=== PATIENT | female | born 1960 | race Caucasian/White ===

== ENCOUNTER → 2019-10-06 14:16 | Outpatient (BNVA) | payer MEDICARE, MEDICAID, SELFPAY | PROVIDERS: PCP Nurse Practitioner Family; Visit Provider Internal Medicine Rheumatology | DX: M05.79 Rheumatoid arthritis with rheumatoid factor of multiple sites without organ or systems involvement (principal); Z79.899 Other long term (current) drug therapy; L23.9 Allergic contact dermatitis, unspecified cause | CPT/HCPCS: 99214 ==

== ENCOUNTER 2019-11-08 08:42 | Outpatient (CLI) | payer MEDICARE, MEDICAID, SELFPAY ==
--- NOTE | 2019-11-08 08:49 | MM_ITS ---
WS: [id number] BILATERAL DIGITAL SCREENING MAMMOGRAPHY WITH CAD CLINICAL INFORMATION: SCREENING HISTORY: Screening mammogram. No current complaints. COMPARISON: June 05, 2018 TECHNIQUE: Bilateral CC and MLO views. FINDINGS: Scattered fibroglandular densities bilaterally. No suspicious focal mass, asymmetry, calcifications, or architectural distortion. No evidence of malignancy. Punctate calcification right breast. MM/[id number] IMPRESSION: BI-RADS: 2-Benign FOLLOW UP: 1 Year Follow-up Recommend return to annual screening mammography.
== END 2019-11-08 08:43 | disposition home or self-care (01) ==
LOC: RADSHAW 08:46
PROVIDERS: PCP Nurse Practitioner Family; Visit Provider Nurse Practitioner Family
DX: Z12.31 Encounter for screening mammogram for malignant neoplasm of breast (principal)
CPT/HCPCS: 77067

== ENCOUNTER → 2024-03-03 13:11 | Outpatient (BNVA) | payer MEDICARE, MEDICAID, SELFPAY | PROVIDERS: PCP Nurse Practitioner Family | DX: N30.01 Acute cystitis with hematuria (principal) | CPT/HCPCS: 81000; 87086 ==

== ENCOUNTER → 2024-07-15 09:01 | Outpatient (BNVA) | payer MEDICAID, MEDICARE, SELFPAY | PROVIDERS: PCP Nurse Practitioner Family; Referring Provider Nurse Practitioner Family; Visit Provider Internal Medicine Rheumatology | DX: M05.79 Rheumatoid arthritis with rheumatoid factor of multiple sites without organ or systems involvement (principal); L23.9 Allergic contact dermatitis, unspecified cause; M15.9 Polyosteoarthritis, unspecified | CPT/HCPCS: 99204 ==

== ENCOUNTER 2025-02-02 08:21 | Outpatient (RCR) | payer MEDICARE, MEDICAID, SELFPAY | END 2025-02-04 23:59 | disposition home or self-care (01) | LOC: TPT 08:21 | PROVIDERS: Visit Provider Orthopaedic Surgery | DX: S82.042D Displaced comminuted fracture of left patella, subsequent encounter for closed fracture with routine healing (principal); X58.XXXD Exposure to other specified factors, subsequent encounter | CPT/HCPCS: 97110; 97161 ==

== ENCOUNTER 2025-02-23 08:27 | Outpatient (RCR) | payer MEDICARE, MEDICAID, SELFPAY | END 2025-02-28 08:52 | disposition home or self-care (01) | LOC: TPT 08:27 | PROVIDERS: Visit Provider Orthopaedic Surgery | DX: S82.042D Displaced comminuted fracture of left patella, subsequent encounter for closed fracture with routine healing (principal); X58.XXXD Exposure to other specified factors, subsequent encounter | CPT/HCPCS: 97110; 97140 ==

== ENCOUNTER → 2025-03-10 10:41 | Outpatient (BNVA) | payer MEDICARE, MEDICAID, SELFPAY | PROVIDERS: Visit Provider Student in an Organized Health Care Education/Training Program | DX: R19.5 Other fecal abnormalities (principal) | CPT/HCPCS: 99204 ==

== ENCOUNTER 2025-03-22 07:26 | Day surgery (SDC) | payer MEDICARE, MEDICAID, SELFPAY ==
[2025-03-22 07:41] VITALS: BP 152/67; PULSE 63; RESP 18; TEMP 36.2; O2SAT 100; BMI 22.6
--- NOTE | 2025-03-22 08:45 | ANES.PREANE2 ---
Pre-Anesthetic Assessment Height/Weight: Height 5 ft 6 in Weight 140 lb Temp Pulse Resp BP Pulse Ox O2 Del Method 97.1 F L 63 18 152/67 100 Room Air 03/22/25 07:41 03/22/25 07:41 03/22/25 07:41 03/22/25 07:41 03/22/25 07:41 03/22/25 07:41 Preop Diagnosis: Screening colonoscopy Operation Date: 03/22/25 09:00 Proposed Procedures p Colonoscopy [id number] G0105 R19.5(Not Applicable) - Edison Ruff MD Was Beta Neo taken within 24 hours: Yes Was Clonidine taken within 24 hours: N/A Last intake: Intake Last Liquid Date 03/21/25 Last Liquid Time 20:00 Last Solid Date 03/20/25 Last Solid Time 19:00 Social No alcohol and No tobacco Exam alert, oriented x 3, clear to auscultation bilaterally and regular rate & rhythm Airway Submandibular: within normal limits Cervical ROM: within normal limits Mallampati: Class III Dentition: false Anesthetic Plan ASA status: 3 Anesthesia: MAC Other: Patient has a history of PONV but states she does just fine if she gets Zofran Completed bowel prep History of hypertension on metoprolol and amlodipine preop BP 152/67 GERD on Protonix Patient is very worried about false teeth, only wants to take them out in the room Apixaban last taken 03/19/2025 Plan for MAC anesthesia Medications/Allergies Home Medications ?Medication ?Instructions ?Recorded ?Confirmed ?Last Taken ?Type amlodipine 5 mg tablet 5 mg PO DAILY 07/20/19 03/17/25 03/22/25 06:00 History apixaban 5 mg tablet (Eliquis) 5 mg PO BID 07/20/19 03/17/25 03/19/25 History cyclobenzaprine 10 mg tablet 10 mg PO TID PRN Spasms 07/20/19 03/17/25 03/17/25 History loratadine 10 mg tablet 10 mg PO DAILY 07/20/19 03/17/25 03/17/25 History metoprolol tartrate 50 mg tablet 50 mg PO BID 07/20/19 03/17/25 03/22/25 06:00 History pantoprazole 40 mg tablet,delayed 40 mg PO DAILY 07/20/19 03/17/25 03/17/25 History release prednisone 20 mg tablet See Rx Instructions PO .COMPLEX 07/15/24 03/17/25 Unknown Rx PRN joint pain flare #30 tabs hydroxyzine HCl 25 mg tablet 12.5 - 25 mg PO Q6H PRN Anxiety 03/17/25 03/17/25 03/16/25 History ondansetron 4 mg disintegrating 4 mg PO Q8H PRN Nausea And Vomiting 03/17/25 03/17/25 03/17/25 History tablet oxycodone-acetaminophen 5 mg-325 0.5 tab PO Q6H PRN Pain 03/17/25 03/17/25 03/17/25 History mg tablet trazodone 100 mg tablet 100 mg PO BEDTIME PRN Sleep 03/17/25 03/17/25 Unknown History Allergies Allergy/AdvReac Type Severity Reaction Status Date / Time codeine Allergy unknown Verified 03/10/25 10:43 ibuprofen Allergy Unknown Verified 03/10/25 10:43 Penicillins Allergy Unknown Verified 03/10/25 10:43 Sulfa (Sulfonamide Allergy Unknown Verified 03/10/25 10:43 Antibiotics) Current Medications Generic Name Dose Route Start Last Admin Trade Name Freq PRN Reason Stop Dose Admin Sodium Chloride 1,000 mls @ 15 mls/hr 03/22/25 07:28 03/22/25 08:02 Sodium Chloride 0.9% IV 03/23/25 07:27 15 mls/hr .Q24H PRN Administration COLONOSCOPY FLUIDS PFSH Anesthesia Medical History (Updated 03/16/25 @ 09:28 by Edison Ruff MD) Osteoarthritis, generalized Allergic contact dermatitis Immunization counseling High risk medication use Seropositive rheumatoid arthritis of multiple sites Hypertension GERD (gastroesophageal reflux disease) Rheumatoid arthritis Surgical History (Updated 03/10/25 @ 10:52 by Ruby George LPN) History of hysterectomy History of delivery Family History Other CAD (coronary artery disease) Cancer Diabetes Denies family history of Rheumatoid arthritis Lupus Chronic kidney disease (CKD) Anesthesia complication Hypertension Stroke Social History Smoking and tobacco/nicotine status: former use of tobacco/nicotine Alcohol intake: never
--- NOTE | 2025-03-22 09:45 | W.PM.OPSUD ---
Surgery/Procedure H&P Update DATE OF PROCEDURE: March 22, 2025 DATE H&P PERFORMED: 03/10/25 H&P UPDATE INFORMATION: I have reviewed H&P completed within last 30 days, I have examined patient prior to procedure, No changes to prior documentation and Risks and benefits of the procedure reviewed PREOP DIAGNOSIS: Screening colonoscopy PLANNED PROCEDURE: Operation Date: 03/22/25 09:00 Proposed Procedures p Colonoscopy [id number] G0105 R19.5(Not Applicable) - Edison Ruff MD
[2025-03-22 10:15] VITALS: BP 143/77; PULSE 68; RESP 16; TEMP 36.3; O2SAT 100
[2025-03-22 10:27] VITALS: BP 142/85; PULSE 85; RESP 16; O2SAT 97
--- NOTE | 2025-03-22 10:55 | ANE.PACU2 ---
Inpatient post-anesthesia follow up: Airway intact: Yes Vital signs: Temperature 97.4 F Pulse Rate 85 Respiratory Rate 16 Blood Pressure 142/85 Pulse Oximetry 97 Oxygen Delivery Me thod Room Air Oxygen Flow Rate Fraction of Inspir ed Oxygen Hydration adequate: Yes Nausea and vomiting: No Pain level: 1 Mental status: Baseline
== END 2025-03-22 10:55 | disposition home or self-care (01) ==
PROVIDERS: PCP Nurse Practitioner Family; Visit Provider Student in an Organized Health Care Education/Training Program
PROC: 0DJD8ZZ Inspection of Lower Intestinal Tract, Via Natural or Artificial Opening Endoscopic (ICD-10-PCS; CPT 45378; principal; 2025-03-22 09:00)
DX: Z12.11 Encounter for screening for malignant neoplasm of colon (principal); R19.5 Other fecal abnormalities; K57.30 Diverticulosis of large intestine without perforation or abscess without bleeding; K64.1 Second degree hemorrhoids; K64.4 Residual hemorrhoidal skin tags; K21.9 Gastro-esophageal reflux disease without esophagitis; I10 Essential (primary) hypertension; M05.9 Rheumatoid arthritis with rheumatoid factor, unspecified; Z80.9 Family history of malignant neoplasm, unspecified; Z87.891 Personal history of nicotine dependence; Z79.891 Long term (current) use of opiate analgesic
CPT/HCPCS: G0121; J2704; J7030